=== PATIENT | female | born 1970 | race Caucasian/White ===

== ENCOUNTER 2024-12-06 16:33 | Emergency (ER) | payer OTHER, SELFPAY ==
[2024-12-06 16:42] VITALS: BP 208/121
[2024-12-06] MEDS: TYLENOL 1000 MG PO (16:57)
[2024-12-06 17:31] VITALS: BP 173/99
[2024-12-06 17:33] VITALS: BP 173/103
[2024-12-06 17:40] VITALS: BP 185/107
[2024-12-06 17:40] LABS: % Basophils 0.4 % (0-2); % Eosinophils 0.2 % (0-6); % Immature Granulocytes 0.4 % (0-0.5); % Lymphocytes 8.7 % (20.5-51.1); % Monocytes 10.9 % (1.7-9.3); % Neutrophils 79.4 % (42.2-75.2); Absolute Lymphocytes 0.7 10^3/uL (1.2-3.4); Absolute Monocytes 0.9 10^3/uL (0.1-0.6); Absolute Neutrophils 6.5 10^3/uL (1.4-6.5); Hematocrit 42.7 % (37.0-47.0); Hemoglobin 14.7 g/dL (12.0-16.0); Mean Corp Hgb Conc. 34.4 g/dL (33.0-37.0); Mean Corpuscular Hgb 30.2 pg (27.0-31.0); Mean Corpuscular Volume 87.7 fL (81.0-99.0); Mean Platelet Volume 12.5 fL (7.4-10.4); Nucleated Red Blood Cells % 0 %; Platelet Count 168 10^3/uL (130-400); Red Blood Cell Count 4.87 10^6/uL (4.20-5.40); Red Cell Dist. Width 12.7 % (11.5-14.5); White Blood Cell Count 8.1 10^3/uL (4.8-10.8)
[2024-12-06 17:54] LABS: HCG, Serum Qualitative Screen Negative
[2024-12-06 17:55] LABS: COVID-19 Antigen Negative (Negative)
[2024-12-06 17:56] LABS: ALT (SGPT) 83 U/L (0-35); AST (SGOT) 66 U/L (14-36); Albumin 4.7 g/dl (3.5-5.0); Alkaline Phosphatase 110 U/L (38-126); Blood Urea Nitrogen 13 mg/dl (7-17); Calcium 9.8 mg/dl (8.4-10.2); Carbon Dioxide 25 mmol/L (22-30); Chloride 97 mmol/L (98-107); Glucose 118 mg/dl (70-99); Potassium 3.9 mmol/L (3.5-5.1); Sodium 134 mmol/L (135-145); Total Bilirubin 0.4 mg/dl (0.2-1.3); Total Protein 7.8 g/dl (6.3-8.2); eGFR > 60.00
[2024-12-06 18:00] VITALS: BP 156/94
[2024-12-06 18:20] VITALS: BP 156/83
--- NOTE | 2024-12-06 18:37 | ED.GENMED ---
History of Present Illness
General
Chief Complaint: Blood Pressure Problem
Source: patient and significant other
Time Seen by Provider: 12/06/24 17:10
History of Present Illness
History of Present Illness:
54-year-old female presents with cough, fever, shortness of breath and headache. Patient states her symptoms started yesterday. She has a history of hypertension. She admits that even when she went to the dentist it was extremely high. The
patient admits that she has not really followed up properly. She also admits she has gained weight. She went to urgent care was sent here due to high blood pressure. She denies taking [id number] meds. Patient just reports feeling body
aches. No neurosymptoms. No chest pain. Patient admits that she is on lisinopril
Past History
Past History
ED Past Medical History: HTN
ED Past Surgical History: None
Social History
Tobacco: Non-smoker
Living: with family
Phy Exam
Physical Exam
Physical Exam:
CONSTITUTIONAL Patient alert and oriented to person, place and time. Well-appearing. Vital signs reviewed.
HEAD atraumatic, normocephalic.
EYES eyelids normal to inspection, Extraocular muscles intact, Conjunctiva normal, Sclera normal.
NECK normal range of motion, Trachea midline, no jugular venous distention.
RESPIRATORY CHEST No respiratory distress noted, Chest expansion equal, Bilateral breath sounds clear.
CARDIOVASCULAR regular rate and rhythm, Heart sounds normal.
ABDOMEN abdomen nontender, Bowel sounds normal. No distention.
BACK normal inspection, no obvious deformities
UPPER EXTREMITY range of motion normal, Motor strength normal, no cyanosis, no edema.
LOWER EXTREMITY range of motion normal, Motor strength normal, no cyanosis, no edema.
NEURO Speech normal, No focal motor deficits, Tammy coma scale 15, Memory normal, Cranial Nerves intact to screening exam.
SKIN skin warm, dry, and normal in color.
Sepsis
Sepsis Screening
Sepsis Assessment: Sepsis Ruled Out
Sepsis Screen
Sepsis Screen: Sepsis Ruled Out
Date: 12/07/24
Time: 00:30
Course
Orders/Labs/Results
Orders:
Orders
12/06/24 16:50
Electrocardiogram (*1) Urgent
Reason for Study: Shortness of Breath
EKG- Treatment ONCE
12/06/24 16:51
Test Result ONCE
12/06/24 16:53
Acetaminophen [Tylenol] 1,000 mg .ROUTE .STK-MED ONE
12/06/24 16:57
Acetaminophen [Tylenol] 1,000 mg PO NOW STA
12/06/24 17:30
COVID-19 Antigen Urgent
Source: Nasal Swab
Complete Blood Count/With Diff Urgent
Comprehensive Metabolic Panel Urgent
HCG, Serum Qualitative Screen Urgent
Influenza A+B Rapid Molecular Urgent
LIZ Source: Nasal Swab
Specimen Description:
12/06/24 18:36
Amlodipine [Norvasc] 5 mg PO NOW STA
Ibuprofen [Motrin] 600 mg PO NOW STA
Abnormal Lab Results
12/06/24
17:30
MPV 12.5 H fL
(7.4-10.4)
Absolute Lymphs (auto) 0.7 L 10^3/uL
(1.2-3.4)
Absolute Monos (auto) 0.9 H 10^3/uL
(0.1-0.6)
Neutrophils % 79.4 H %
(42.2-75.2)
Lymphocytes % 8.7 L %
(20.5-51.1)
Monocytes % 10.9 H %
(1.7-9.3)
Sodium 134 L mmol/L
(135-145)
Chloride 97 L mmol/L
(98-107)
Glucose 118 H mg/dl
(70-99)
AST 66 H U/L
(14-36)
ALT 83 H U/L
(0-35)
12/06/24 17:30
12/06/24 17:30
Vital Signs
Initial and Last Documented VS:
Initial Vital Signs
Temp Pulse Resp BP Pulse Ox
101.7 F H 115 20 208/121 98
12/06/24 16:42 12/06/24 16:42 12/06/24 16:42 12/06/24 16:42 12/06/24 16:42
Last Documented Vital Signs
Temp Pulse Resp BP Pulse Ox
98.5 F 105 13 156/83 98
12/06/24 18:09 12/06/24 18:20 12/06/24 18:20 12/06/24 18:20 12/06/24 18:20
MDM/Problems Addressed
MDM/Problems Addressed:
Acute influenza, acute severe uncontrolled hypertension
*Pulse Oximetry
Patient hypoxic: no
*EKG
Interpreted by ED Provider?: Yes
Interpretation: abnormal
Rate: normal
Rhythm: sinus
[place]: left axis deviation
QRS Pattern: left vent hypertrophy
Ischemia: non-specific ST changes
*Rejector Interpretation
Rate: tachycardiac
Interpretation: abnormal
Rhythm: sinus
*Critical Care Note
Total Time (30-74mins, 75-104mins- exclusive of procedures): Not Applicable
Data Reviewed
Source: patient and spouse
Prescriptions/Medications Considered But Not Given:
Considered IV labetalol but blood pressure came down nicely without intervention
Patient Management
Escalation/DeEscalation of care consider admission/obs:
Patient reports a longstanding history of uncontrolled hypertension. She admits she has not been following up. Patient's blood pressure improved significantly without intervention. Will add Norvasc for now but encouraged strongly that she is this
week. She otherwise appears well. Feels better after fever control. No clinical signs of ACS, neurologic findings and creatinine is normal
ED Attending Note
-
Portions of this chart may have been created with voice recognition software.� Occasional wrong word or��sound alike� substitutions may have occurred due to the inherent limitations of voice recognition software.
Discharge Plan
Departure
Patient Disposition: Home (Routine Discharge)
Date of Disposition: 12/06/24
Time of Disposition: 18:38
Patient with high blood pressure during this ER visit?: Yes
Discharge Problem:
Uncontrolled hypertension, Influenza
Instructions: Flu, High Blood Pressure (DC), BLOOD PRESSURE
Prescriptions:
New
amlodipine 5 mg tablet
5 mg PO DAILY Qty: 30 0RF
albuterol sulfate 90 mcg/actuation HFA aerosol inhaler
2 puff inhalation Q6H PRN (Reason: shortness of breath or wheezing) Qty: 8.5 0RF
No Action
cetirizine 10 MG tablet
10 mg PO DAILY
metoprolol tartrate 50 MG tablet
50 mg PO DAILY
Wellbutrin
150 mg PO DAILY
Referrals:
Jesse Garvey CRNP [Family Provider] -
Activity Restrictions/Additional Instructions:
Your blood pressure was elevated while in the Emergency Department, please have your doctor re-evaluate it in the next 48 hours as untreated hypertension may lead to serious complications.
Please use ibuprofen and Tylenol as needed for fever control. Return immediately for difficulty breathing, chest pain, changes in mentation, headache, vision changes, weakness of any kind or any other concerns.
Please use a humidifier in the room or cracked the windows a little bit to get some moisture in the air as discussed. It is imperative that you see your doctor in the next 3 to 5 days for blood pressure check and for further management regarding
your blood pressure.
Interventions
Interventions:
*Risk Screen - Suicide Last Done: 12/06/24 16:49
*General Assessment Last Done: 12/06/24 16:49
*Neglect/Abuse Screening Last Done: 12/06/24 16:49
ED- Fall Risk Assessment Last Done: 12/06/24 18:51
*ED COVID-19 Vaccine History Last Done: 12/06/24 17:36
*Nursing Disposition Last Done: 12/06/24 18:51
ED- Cardiac Assessment Last Done: 12/06/24 17:36
ED- Neurological Assessment Last Done: 12/06/24 17:36
ED- Pulmonary Assessment Last Done: 12/06/24 17:36
Discharge Date and Time
Discharge Date/Time: 12/06/24 18:53
Print Language: FILIPINO
[2024-12-06] MEDS: MOTRIN 600 MG PO (18:45)
[2024-12-06] MEDS: NORVASC 5 MG PO (18:45)
== END 2024-12-06 18:53 | disposition home or self-care (01) ==
LOC: EMR 16:33
PROVIDERS: Emergency Medicine; EMERGENCY PHYSICIAN Emergency Medicine; FAMILY PHYSICIAN Registered Nurse
DX: I10 Essential (primary) hypertension (principal); J10.1 Influenza due to other identified influenza virus with other respiratory manifestations
CPT/HCPCS: 99283; 80053; 84703; 85025; 87502; 87811; 93005